=== PATIENT | male | born 1955 | race American Indian/Alaskan Native ===

== ENCOUNTER 2020-05-26 06:36 | Day surgery (SDC) | payer BC, OTHER ==
[~2020-05-26 06:36] MED LIST: Lactated Ringers 1,000 ML IV SCH; Sodium Chloride 0.9% 10 ML SDV IV PRN; Sodium Chloride 0.9% 10 ML Syringe FLUSH PRN; Sodium Chloride 0.9% 2.5 ML Syringe FLUSH PRN
--- NOTE | 2020-05-26 07:02 | PCM.PREANE ---
Preanesthetic Assessment - Anesthesia/Transfusion/Family Hx Anesthesia History: Prior Anesthesia Without Reaction Other Type of Anesthesia Reaction Comment: Only prior anesthesia was with vasectomy Family History of Anesthesia Reaction: No Transfusion History: No Prior Transfusion(s) Intubation History: Unknown - Review of Systems General: No Symptoms Pulmonary: No Symptoms Cardiovascular: No Symptoms Gastrointestinal: No Symptoms, Other (tubular adenoma 5 years ago) Neurological: No Symptoms Other: Reports: None - Physical Assessment Height: 5 ft 9 in Weight: 99.79 kg ASA Class: 2 Mental Status: Alert & Oriented x3 Airway Class: Mallampati = 2 Dentition: Reports: Normal Dentition Thyro-Mental Finger Breadths: 3 Mouth Opening Finger Breadths: 3 ROM/Head Extension: Full Lungs: Clear to Auscultation, Normal Respiratory Effort Cardiovascular: Regular Rate, Regular Rhythm - Allergies Allergies/Adverse Reactions: Allergies Allergy/AdvReac Type Severity Reaction Status Date / Time No Known Allergies Allergy Verified 05/20/20 13:56 - Blood Blood Available: No - Anesthesia Plan Pre-Op Medication Ordered: None - Acknowledgements Anesthesia Type Planned: MAC Pt an Appropriate Candidate for the Planned Anesthesia: Yes Alternatives and Risks of Anesthesia Discussed w Pt/Guardian: Yes Pt/Guardian Understands and Agrees with Anesthesia Plan: Yes PreAnesthesia Questionnaire HEENT History: Reports: Impaired Vision Other HEENT History: wears glasses Cardiovascular History: Reports: None Respiratory History: Reports: None Gastrointestinal History: Reports: Colon Polyp Genitourinary History: Reports: None Musculoskeletal History: Reports: None Neurological History: Reports: None Psychiatric History: Reports: None Endocrine/Metabolic History: Reports: Obesity/BMI 30+ (BMI 32.5) Hematologic History: Reports: None Immunologic History: Reports: None Oncologic (Cancer) History: Reports: None Dermatologic History: Reports: None - Infectious Disease History Infectious Disease History: Reports: None - Past Surgical History Head Surgeries/Procedures: Reports: None HEENT Surgical History: Reports: None Cardiovascular Surgical History: Reports: None Respiratory Surgical History: Reports: None GI Surgical History: Reports: Colonoscopy (5 years ago) Female Surgical History: Reports: None Male Surgical History: Reports: Other (See Below) Other Male Surgeries/Procedures: states had surgery on testicle to drain fluid Endocrine Surgical History: Reports: None Neurological Surgical History: Reports: None Musculoskeletal Surgical History: Reports: Arthroscopic Procedure Oncologic Surgical History: Reports: None - SUBSTANCE USE Tobacco Use Within Last Twelve Months: Other (See Below) - HOME MEDS Home Medications: Home Meds Latanoprost/Pf [Latanoprost 0.005% Eye Drop] 1 drop EYEBOTH BEDTIME 05/20/20 [History] timoloL maleate [Timoptic 0.25% Ophth Soln] 1 drop EYELF BEDTIME 05/20/20 [History] - CURRENT (IN HOUSE) MEDS Current Meds: Current Medications Lactated Ringer's (Ringers, Lactated) 1,000 mls @ 125 mls/hr IV ASDIRECTED AMINAH Lactated Ringer's (Ringers, Lactated) 1,000 mls @ 125 mls/hr IV ASDIRECTED AMINAH Sodium Chloride (Saline Flush) 10 ml FLUSH ASDIRECTED PRN PRN Reason: Keep Vein Open Sodium Chloride (Saline Flush) 2.5 ml FLUSH ASDIRECTED PRN PRN Reason: Keep Vein Open Sodium Chloride (Saline Flush) 10 ml FLUSH ASDIRECTED PRN PRN Reason: Keep Vein Open Sodium Chloride (Saline Flush) 2.5 ml FLUSH ASDIRECTED PRN PRN Reason: Keep Vein Open Sodium Chloride (Normal Saline) 10 ml IV ASDIRECTED PRN PRN Reason: IV Use
[2020-05-26] MEDS ORDERED: Midazolam 1 MG/ML 2 ML SDV ONE (07:05)
[2020-05-26] MEDS ORDERED: Propofol 200 MG/20 ML SDV ONE (07:05)
--- NOTE | 2020-05-26 08:17 | PCM.OPNOTE ---
- General Post-Op/Procedure Note Date of Surgery/Procedure: 05/26/20 Operative Procedure(s): Colonoscopy with polypectomies. Findings: colon polyps dictation number [id number] Pre Op Diagnosis: Family history of colon cancer and history of colon polyps Post-Op Diagnosis: colon polyps Anesthesia Technique: Moderate Sedation Primary Surgeon: Fernandez Palmer Pathology: colon polyps Complications: None Condition: Good
[2020-05-26 08:24] VITALS: PULSE 65
--- NOTE | 2020-05-26 08:32 | PCM.POSTAN ---
POST ANESTHESIA ASSESSMENT - MENTAL STATUS Mental Status: Alert, Oriented - VITAL SIGNS Vital Signs: Last Vital Signs Temp 36.5 C 05/26/20 07:08 Pulse 65 05/26/20 08:23 Resp 13 05/26/20 08:23 BP 107/59 L 05/26/20 08:23 Pulse Ox 93 L 05/26/20 08:23 - RESPIRATORY Respiratory Status: Respiratory Rate WNL, Airway Patent, O2 Saturation Stable - CARDIOVASCULAR CV Status: Pulse Rate WNL, Blood Pressure Stable - GASTROINTESTINAL GI Status: No Symptoms - PAIN Pain Score: 0 - POST OP HYDRATION Hydration Status: Adequate & Stable - OBSERVATIONS Free Text/Narrative:: No anesthesia problems
--- NOTE | 2020-05-26 09:04 | PCM48HPAN ---
Post Anesthesia Note - EVALUATION WITHIN 48HRS OF ANESTHETIC Vital Signs in Normal Range: Yes Patient Participated in Evaluation: Yes Respiratory Function Stable: Yes Airway Patent: Yes Cardiovascular Function Stable: Yes Hydration Status Stable: Yes Pain Control Satisfactory: Yes Nausea and Vomiting Control Satisfactory: Yes Mental Status Recovered: Yes Vital Signs: Last Vital Signs Temp 36.5 C 05/26/20 07:08 Pulse 65 05/26/20 08:23 Resp 13 05/26/20 08:23 BP 107/59 L 05/26/20 08:23 Pulse Ox 93 L 05/26/20 08:23 - COMMENTS/OBSERVATIONS Free Text/Narrative:: No anesthesia problems
[2020-05-26 09:42] VITALS: BP 104/70
--- NOTE | 2020-05-26 11:03 | OR ---
SURGEON: MARYAN PARK MD DATE OF PROCEDURE: 05/26/2020 PREOPERATIVE DIAGNOSES: 1. History of colon polyp. 2. Family history of colon cancer. POSTOPERATIVE DIAGNOSES: 1. Colon polyps, 2 in the descending colon, 1 in the rectal vault. 2. Noninflamed external hemorrhoidal skin tissue. Procedure Preformed: 1. Colonoscopy. 2. Hot snare polypectomy. 3. Cold biopsy polypectomy. PRIMARY SURGEON: Maryan Park MD ANESTHESIA: With anesthesiologist. EXTENT OF COLONOSCOPY: To the cecum. WITHDRAWAL TIME: 15 minutes. BOWEL PREP: Very good. LIMITATIONS: None. REASON FOR PROCEDURE: The patient is a pleasant 64-year-old gentleman whose last colonoscopy was about 5 years ago. He had a tubular adenoma in the descending colon. Denies any blood in his stool. His brother had colon cancer at age 54. PROCEDURE IN DETAIL: Physical examination was performed. The major risks and benefits associated with the procedure were explained to the patient in detail. The patient verbalized understanding of the same. The patient was then connected to appropriate monitoring devices and IV started. EKG, pulse, pulse oximetry, blood pressure, and capnography were monitored throughout the procedure. Continuous oxygen and sedation were provided by the anesthesiologist. The patient was placed in left lateral decubitus position. Sedation was begun. After adequate sedation was achieved, digital rectal exam was performed. No rectal masses or polyps were felt. Now, a well-lubricated Olympus colonoscope was entered in the rectum and advanced under direct visualization to the level of the cecum. Cecum was identified by both visual and anatomic landmarks. Photographs were taken of the cecal cap. Scope was slowly withdrawn in somewhat circular fashion looking at the color, texture, anatomy, and integrity of the mucosa from the cecum to the anal canal. The patient did have some minimal stool suctioned and irrigated out for good look at the mucosa. The patient had a polyp at about 90 cm. This did appear to be in the descending colon, splenic flexure area. This was removed with a hot snare polypectomy. There was good hemostasis. There was a small polyp next to it which was removed with a cold biopsy polypectomy. Scope was completely withdrawn. The patient did have another smaller polyp right in the rectal vault. This was also removed with a cold biopsy polypectomy and appeared to be completely removed. Scope was retroflexed in the rectum. Scope was completely removed and the procedure was terminated. ENDOSCOPIC DIAGNOSES: 1. Colon polyps. 2. Noninflamed external hemorrhoidal skin tissue. RECOMMENDATION: Followup colonoscopy will depend on pathology, most likely will need another one in 5 years or sooner if develops signs and symptoms such as change in bowel habits or blood in the stool. ANN COULTER /[id number] ZION
== END 2020-05-26 08:40 | disposition home or self-care (01) ==
LOC: MW.SDS 06:36
PROVIDERS: ATTEND Surgery
DX: Z12.11 Encounter for screening for malignant neoplasm of colon (principal); D12.4 Benign neoplasm of descending colon; K62.1 Rectal polyp; K64.4 Residual hemorrhoidal skin tags; I10 Essential (primary) hypertension; K42.9 Umbilical hernia without obstruction or gangrene; E66.9 Obesity, unspecified; Z80.0 Family history of malignant neoplasm of digestive organs; Z98.890 Other specified postprocedural states; F17.290 Nicotine dependence, other tobacco product, uncomplicated; Z68.32 Body mass index [BMI] 32.0-32.9, adult
CPT/HCPCS: 45380; 45385; J2250; J2704; J7120; 00812; 88305

== ENCOUNTER 2024-03-17 06:25 | Day surgery (SDC) | payer MEDICARE, OTHER ==
[~2024-03-17 06:25] MED LIST changes: -Lactated Ringers 1,000 ML IV SCH; -Sodium Chloride 0.9% 10 ML SDV IV PRN; +Sodium Chloride 0.9% 20 ML SDV IV PRN; +ceFAZolin 2 GM in Sodium Chloride 0.9% 50 ML IV ONE
[2024-03-17] MEDS: Lactated Ringers 1,000 ML IV SCH (07:00)
[2024-03-17] MEDS ORDERED: Propofol 200 MG/20 ML SDV ONE (07:16)
[2024-03-17] MEDS ORDERED: fentaNYL 100 MCG/2 ML SDV ONE ×2 (07:16→08:26)
[2024-03-17] MEDS ORDERED: dexmedeTOMIDine HCl 200 MCG/2 ML SDV ONE (07:17)
[2024-03-17] MEDS ORDERED: Ondansetron 4 MG/2 ML SDV ONE (07:17)
[2024-03-17] MEDS ORDERED: Dexamethasone 4 MG/ML 5 ML MDV ONE (07:17)
[2024-03-17] MEDS ORDERED: Lidocaine 2% 5 ML SDV ONE (07:17)
[2024-03-17] MEDS ORDERED: Rocuronium Bromide 50 MG/5 ML Syringe ONE (07:17)
[2024-03-17] MEDS ORDERED: Bupivacaine 0.5% 30 ML SDV ONE (07:18)
[2024-03-17] MEDS ORDERED: Water For Injection, Sterile 20 ML ONE (07:22)
[2024-03-17] MEDS ORDERED: Bupivacaine 0.25% 30 ML SDV ONE (07:27)
[2024-03-17] MEDS ORDERED: Ropivacaine 0.5% 5 MG/ML 30 ML SDV ONE (07:27)
[2024-03-17] MEDS ORDERED: Morphine 10 MG/ML SDV ONE (07:30)
[2024-03-17] MEDS ORDERED: Lidocaine 4% 5 ML Amp ONE (07:52)
[2024-03-17] MEDS ORDERED: ceFAZolin 2 GM Vial ONE (08:15)
[2024-03-17] MEDS ORDERED: ePHEDrine 50 MG/ML SDV ONE (08:27)
[2024-03-17] MEDS ORDERED: Sugammadex Sodium 200 MG/2 ML VIAL IV ONE (08:44)
[2024-03-17] MEDS ORDERED: Ketorolac 30 MG/ML SDV ONE (08:44)
[2024-03-17] MEDS ORDERED: Morphine 2 MG/ML SYRINGE IVPUSH PRN (09:59)
[2024-03-17] MEDS ORDERED: Ondansetron 4 MG/2 ML SDV IVPUSH PRN (09:59)
[2024-03-17] MEDS ORDERED: HYDROmorphone 1 MG/ML Syringe IVPUSH PRN (09:59)
[2024-03-17] MEDS ORDERED: Albuterol 0.083% 2.5 MG/3 ML Neb Soln NEB PRN (09:59)
[2024-03-17] MEDS ORDERED: Phenylephrine HCl In 0.9% NaCl 1 MG/10 ML Syringe IVPUSH PRN (09:59)
[2024-03-17] MEDS ORDERED: Naloxone 0.4 MG/ML SDV IVPUSH PRN ×2 (09:59)
[2024-03-17] MEDS ORDERED: Metoclopramide 10 MG/2 ML SDV IVPUSH PRN (09:59)
[2024-03-17] MEDS ORDERED: fentaNYL 50 MCG/ML SDV IVPUSH PRN (09:59)
[2024-03-17 12:03] VITALS: BP 125/70; PULSE 69
== END 2024-03-17 09:58 | disposition home or self-care (01) ==
LOC: MW.SDS 06:25
PROVIDERS: ATTEND Surgery
DX: K42.0 Umbilical hernia with obstruction, without gangrene (principal); E66.9 Obesity, unspecified; I10 Essential (primary) hypertension; Z79.899 Other long term (current) drug therapy
CPT/HCPCS: 49592; J0131; J0665; J0690; J1100; J1885; J2270; J2704; J2795; J3010; J3490; J7120; 00790; 49591; 64488; J2405